=== PATIENT | female | born 2000 | race Two or more races ===

== ENCOUNTER 2024-09-19 20:26 | Emergency (ER) | payer OTHER, SELFPAY ==
[2024-09-19 20:30] VITALS: BMI 26.4
[2024-09-19 20:38] VITALS: BP 145/88; PULSE 73; RESP 20; TEMP 37.2; O2SAT 98
[2024-09-19] MEDS: DiphenhydrAMINE 25 MG CAPSULE PO (21:03)
[2024-09-19] MEDS: DEXAMETHASONE SOD PHOS INJ 10 MG/ML VIAL PO (21:04)
[2024-09-19] MEDS: FAMOTIDINE 20 MG TABLET PO (21:04)
--- NOTE | 2024-09-19 21:54 | EDNOTE_ITS ---
ED Allergic Reaction RME/HPI General Chief complaint: General Adult/Misc Complain Stated complaint: THINKS HER THROAT IS CLOSING,RECIEVED EPI PEN Time Seen by Provider: 09/19/24 20:47 Arrival date/time: 09/19/24 20:26 24F with no significant PMH presents to ED with throat swelling/closing sensation starting about 12 hours ago. Patient gave herself an epipen. Patient denies new foods, meds, hygiene products, skin swelling/itching and rash. Limitations: no limitations Related Data Previous Rx's ?Medication ?Instructions ?Recorded epinephrine 0.3 mg/0.3 mL 0.3 ml subcut QDAY PRN 09/19/24 injection, auto-injector (EpiPen hypersensitivity reaction #2 ea 2-Dante) prednisone 20 mg tablet 20 mg PO BID 3 days #6 tabs 09/19/24 Review of Systems Review of Systems Systems Reviewed: All systems reviewed, normal except as documented Constitutional Constitutional: Reports system reviewed and no additional complaints, except as documented, Denies fever(s) and Denies headache(s) ENT Ears, Nose, Mouth, and Throat: Reports as per HPI, Denies disequilibrium, Denies headache(s) and Reports throat swelling Cardiovascular Cardiovascular: Reports system reviewed and no additional complaints, except as documented, Denies chest pain and Denies dyspnea Respiratory Respiratory: Reports system reviewed and no additional complaints, except as documented, Denies cough and Denies dyspnea Gastrointestinal Gastrointestinal: Reports system reviewed and no additional complaints, except as documented, Denies abdominal pain, Denies nausea and Denies vomiting Neurologic Neurologic: Reports system reviewed and no additional complaints, except as documented, Denies confusion, Denies disequilibrium and Denies headache(s) Psychiatric Psychiatric: Denies confusion Allergic/Immunologic Allergic/Immunologic: Reports throat swelling Past Medical History Social History SMOKING STATUS: Never smoker ED Exam General Limitations: Present no limitations General appearance: Present alert and in no apparent distress Head Head exam: Present atraumatic Eye Eye exam: Present normal appearance, PERRL and EOMI ENT ENT exam: Present normal exam, normal oropharynx and mucous membranes moist Neck Neck exam: Present normal inspection, full ROM and trachea midline Chest Chest inspection: Present normal inspection and symmetric chest wall rise Respiratory Respiratory exam: Present normal lung sounds bilaterally Cardiovascular Cardiovascular exam: Present regular rate, normal rhythm and normal heart sounds Abdominal Exam Abdominal exam: Present soft and normal bowel sounds Extremities Exam Extremities exam: Present normal inspection and full ROM Back Exam Back exam: Present normal inspection and full ROM Neurological Exam Neurological exam: Present alert, oriented X3 and CN II-XII intact Psychiatric Psychiatric exam: Present normal affect and anxious Skin Skin exam: Present warm, dry, intact and normal color Course Quality Measures none Orders Category Date Time Status Dexamethasone Inj [Decadron Inj] Med 09/19/24 20:47 Discontinued 10 mg PO X1 ONE DiphenhydrAMINE [Benadryl] Med 09/19/24 20:47 Discontinued 25 mg PO X1 ONE Famotidine [Pepcid] Med 09/19/24 20:47 Discontinued 20 mg PO X1 ONE Vital Signs Vital signs: Vital Signs Temperature 98.9 F 09/19/24 20:38 Pulse Rate 73 09/19/24 20:38 Respiratory Rate 20 09/19/24 20:38 Blood Pressure 145/88 H 09/19/24 20:38 Pulse Oximetry (%) 98 09/19/24 20:38 Oxygen Delivery Method Room Air 09/19/24 20:38 O2 at 98% on RA and WNLs Allergic Reaction MDM Narrative MDM Narrative:: 24F with no significant PMH presents to ED with throat swelling/closing s ensation starting about 12 hours ago. Patient gave herself an epipen. Patient denies new foods, meds, hygiene products, skin swelling/itching and rash. Physical exam reveals clear ENT and lungs. Patient is afebrile, alert, but anxious. Patient is able to drink water w/o problems. Patient felt immediately better after steroids, so unlikely actual anaphylaxis since steroids take time to work. Likely panic attack/anxiety component to it. Patient data External records reviewed:: None Clinical information provided by:: patient Social determinants that could affect healthcare access:: none Patient has the following chronic illnesses:: none How is presenting disease/condition affected by chronic disease/condition?: no chronic disease Evaluation data The following diagnostics were reviewed and interpreted by me:: other (specify) (none) Lab and/or radiology exams considered but not ordered:: not ordered Interpretation Summary: n/a Medications / Prescriptions Medications or Prescriptions considered but not ordered:: ordered Medication administrations:: Medication Administration History Discontinued Medications Dexamethasone Sodium Phosphate (Dexamethasone Sod Phos Inj 10 Mg/Ml Vial) 10 mg PO X1 ONE Stop: 09/19/24 20:48 Last Admin: 09/19/24 21:04 Dose: 10 mg Documented By: Diphenhydramine HCl (Diphenhydramine 25 Mg Capsule) 25 mg PO X1 ONE Stop: 09/19/24 20:48 Last Admin: 09/19/24 21:03 Dose: 25 mg Documented By: Famotidine (Famotidine 20 Mg Tablet) 20 mg PO X1 ONE Stop: 09/19/24 20:48 Last Admin: 09/19/24 21:04 Dose: 20 mg Documented By: above Consultations Consultation(s) initiated? (list below): No Diagnosis Differential Diagnosis allergic reaction: anaphylaxis, allergic reaction, angioedema, contact dermatitis, adverse reaction to drug, viral enanthem, urticaria and other (panic attack, throat irritation) Most likely diagnosis given after review of the tests above:: throat irritation Admission Indicated Admission indicated?: not indicated Admission Request Was there a request for admission?: No Disposition Plan Disposition Plan: Discharge Discharge Attestation Discharge Attestation: The patient and all family members were given an opportunity to ask questions and understood the discharge instructions. Discharge instructions specifically effects, indications for sooner follow up or return to the emergency department, and the expected course of current diagnosis. Patient condition: Stable Discharge Plan Plan Patient Disposition: HOME (Self Care) Disposition Comment: Stable Prescriptions/Referrals Prescriptions/Med Rec: New prednisone 20 mg tablet 20 mg PO BID 3 Days Qty: 6 0RF epinephrine [EpiPen 2-Dante] 0.3 mg/0.3 mL auto-injector 0.3 ml subcut QDAY PRN (Reason: hypersensitivity reaction) Qty: 2 0RF Problem List Clinical Impression: Throat irritation Patient/Caregiver Discharge Instructions Additional Instructions: Please follow-up with PCP within 24-48 hours and return immediately if symptoms worsen. Take OTC antihistamine as needed until symptoms resolve. Finish entire steroid course. Print Language: [place] Stand Alone Forms: Patient Portal Info Letter CHAVA/MAVERICK Supervising Physician CHAVA/MAVERICK Supervising Physician: Dr. Coleman
== END 2024-09-19 22:59 | disposition home or self-care (01) ==
LOC: SERX 22:32
PROVIDERS: Emergency Provider Emergency Medicine
DX: R07.0 Pain in throat (principal)
CPT/HCPCS: 99282; J1100; A9270